=== PATIENT | male | born 1935 | race Caucasian/White ===

== ENCOUNTER 2021-12-22 09:02 | Inpatient (IN) | payer OTHER ==
[~2021-12-22] VITALS: Ht 165.1 cm; Wt 72.8 kg
[~2021-12-22 09:02] MED LIST: ALBU90OI; ALEN70 PO; ASPI81CH PO; BUDE6HFA INH; CARV6.25 PO; CETI10; CLOP75 PO; EZET10; FURO40 PO; Hytrin2 MG PO; METF500 PO; METO25ER; POTA10T PO; SIMV40 PO; TIOT18 INH
[2021-12-22 09:26] LABS: BASOPHILS ABSOLUTE AUTO 0.04 K/mm3 (0.00-0.23); BASOPHILS PERCENT AUTO 0 % (0-2); EOSINOPHILS ABSOLUTE AUTO 0.02 K/mm3 (0.00-0.68); EOSINOPHILS PERCENT AUTO 0 % (0-6); Hematocrit 38.2 % (37.0-53.0); Hemoglobin 12.1 g/dL (13.5-17.5); IMMATURE GRAN ABSOLUTE AUTO 0.08 K/mm3 (0.00-0.10); IMMATURE GRAN PERCENT AUTO 1 % (0-1); LYMPHOCYTES ABSOLUTE AUTO 1.45 K/mm3 (0.84-5.20); LYMPHOCYTES PERCENT AUTO 12 % (21-46); MONOCYTES ABSOLUTE AUTO 0.85 K/mm3 (0.16-1.47); MONOCYTES PERCENT AUTO 7 % (4-13); Mean Corpuscular HGB Conc 31.7 g/dL (31.5-36.5); Mean Corpuscular Volume 95 fL (80-100); Mean Platelet Volume 12.2 fL (9.1-12.4); NEUTROPHILS ABSOLUTE AUTO 9.88 K/mm3 (1.96-9.15); NEUTROPHILS PERCENT AUTO 80 % (41-73); Platelet Count 139 K/mm3 (150-400); RDW Coefficient Variation 14.5 % (11.7-14.2); RDW Standard Deviation 50.2 fL (35.1-46.3); Red Blood Cell Count 4.03 M/mm3 (4.30-5.90); White Blood Cell Count 12.32 K/mm3 (4.00-11.30)
[2021-12-22 09:37] LABS: Albumin, Blood 3.6 g/dL (3.4-5.0); Albumin/Globulin Ratio 1.2 (0.8-1.8); Bilirubin, Total 1.4 mg/dL (0.1-1.0); Bun/Creatinine Ratio 27.3 (12.0-20.0); Calcium, Blood 10.2 mg/dL (8.5-10.1); Creatinine, Blood 1.21 mg/dL (0.60-1.20); Potassium, Blood 4.9 mmol/L (3.5-5.5); Total Protein, Blood 6.6 g/dL (6.4-8.2)
[2021-12-22 10:53] LABS: Influenza A, PCR NEGATIVE (NEGATIVE); Influenza B, PCR NEGATIVE (NEGATIVE); Resp Syncytial Virus, PCR NEGATIVE (NEGATIVE); SARS-Cov-2 (COVID-19) PCR, MMC NEGATIVE (NEGATIVE)
[2021-12-22 12:15] LABS: Base Excess Venous 6.7 mmol/L; Bicarbonate Venous 29.1 mmol/L (24.0-30.0); PCO2 Venous 59.2 mmHg (38-42); pH Blood Venous 7.35 (7.34-7.37)
[2021-12-22] MEDS ORDERED: B-12500 MC2 PO (16:57)
[2021-12-22] MEDS ORDERED: CETI5 PO (16:58)
[2021-12-22] MEDS ORDERED: CALCIUM 500 MG1 EAC2 PO (17:02)
[2021-12-22] MEDS ORDERED: MOME220I INH (17:06)
[2021-12-22] MEDS ORDERED: JARDIANCE25 MG PO (17:07)
[2021-12-22] MEDS ORDERED: Prinivil10 MG PO (17:08)
--- NOTE | 2021-12-22 17:29 | NUR ---
PT ADMITTED TO ICU 5 AT 1544. PT ALERT AND ORIENTED UPON ARRIVAL, ON 2L/NC. PT REQUESTED OXYGEN BE TURNED UP TO 3L HE FELT A LITTLE SHORT OF BREATH. SPO2 98% ON 3L/NC. SR/ST IN THE LOW 100S WITH PVC, SBP IN THE 90S TO LOW 100S WITH MAPS ABOVE 70. ASSISTED PT IN CLEANING HIS DENTURES AND HIS MOUTH HE HAD LARGE AMOUNTS OF CATES BROWN SPUTUM/DRIED SKIN STUCK IN HIS MOUTH. PT STATES HE HAS BEEN HOLDING IT IN HIS MOUTH ALL DAY. DENTURES BACK IN PT'S MOUTH AFTER CLEANING. ADMIT PAPERWORK COMPLETED WITH PT AND USING HIS RECORDS. PT'S TO BRING IN HIS HOME MEDS TO COMPLETE MED REC. PARTIALLY COMPLETED FROM PHARMACY LIST. PT'S ALSO BRINGING IN PT'S CPAP. UPDATED PT'S WHEN SHE WAS HERE AND PT'S SON ASHLEIGH OVER THE PHONE ABOUT PLAN OF CARE. PT EATING DINNER CURRENTLY, NO REQUESTS AT THIS TIME. CONTINUING TO MONITOR.
--- NOTE | 2021-12-22 19:41 | NUR ---
ASSUMED CARE. AOX3, COOPERATIVE. [place]. ABLE TO MAKE NEEDS KNOWN. NEURO INTACT. LS-WITH LITTLE AIR EXCHANGE IN THE RIGHT BASE. COARSE IN UPPER LOBES AND ON THE LEFT. COUGH WEAK-STATES HE IS WAS ABLE TO COUGH UP SECRETIONS EARLIER. SPUTUM CUP GIVEN. ON 3L WITH SATS >90%. RT IN ROOM TO SET UP CPAP. BREATHING TX PROVIDED. PATIENT VERY COMPLIANT WITH CPAP AND DOES NOT MIND WEARING IT. SINUS ON THE MONITOR, WITH OCCATIONAL PVC'S RATE 92. BP SOFT WITH MAP >65. +2 PITTING EDEMA BLE. URINAL AT BEDSIDE. CALL LIGHT IN REACH. WILL MONITOR.
--- NOTE | 2021-12-22 20:27 | NUR ---
ONCE PT FELL ASLEEP WITH CPAP ON, SATS DROPPED TO 86%, TURNED BLEED UP TO 5L HE CONTINUED TO DROP DUE TO MOUTH BREATHING, AND HE HAS NOSTRIL CPAP. RT CALLED FOR MASK.
--- NOTE | 2021-12-23 01:06 | NUR ---
BLADDER SCAN COMPLETED WITH ONLY 148 IN THE BLADDER. STATES HE DOES NOT FEEL HE NEEDS TO USE THE URINAL. STATES HE NORMALLY TAKES A PILL TO HELP HIM URINATE EVERY 15 MINUTES. CONTINUES TO THROW PVC'S PER MONITOR. BP SOFT WITH MAP >65 WHILE HE IS ASLEEP. MAG AND POTASSIUM LABS ORDERED FOR AM, WILL DRAW LABS EARLY.
[2021-12-23 04:43] LABS: BASOPHILS ABSOLUTE AUTO 0.01 K/mm3 (0.00-0.23); BASOPHILS PERCENT AUTO 0 % (0-2); EOSINOPHILS PERCENT AUTO 0 % (0-6); Hematocrit 33.4 % (37.0-53.0); Hemoglobin 10.5 g/dL (13.5-17.5); IMMATURE GRAN ABSOLUTE AUTO 0.05 K/mm3 (0.00-0.10); IMMATURE GRAN PERCENT AUTO 1 % (0-1); LYMPHOCYTES ABSOLUTE AUTO 0.49 K/mm3 (0.84-5.20); LYMPHOCYTES PERCENT AUTO 6 % (21-46); MONOCYTES ABSOLUTE AUTO 0.35 K/mm3 (0.16-1.47); MONOCYTES PERCENT AUTO 4 % (4-13); Mean Corpuscular HGB 29.7 pg (26.0-34.0); Mean Corpuscular HGB Conc 31.4 g/dL (31.5-36.5); Mean Corpuscular Volume 95 fL (80-100); Mean Platelet Volume 12.5 fL (9.1-12.4); NEUTROPHILS PERCENT AUTO 90 % (41-73); Platelet Count 115 K/mm3 (150-400); RDW Coefficient Variation 14.6 % (11.7-14.2); RDW Standard Deviation 50.2 fL (35.1-46.3); Red Blood Cell Count 3.53 M/mm3 (4.30-5.90)
[2021-12-23 05:02] LABS: Magnesium, Blood 2.1 mg/dL (1.6-2.4)
[2021-12-23 05:03] LABS: Albumin, Blood 2.9 g/dL (3.4-5.0); Albumin/Globulin Ratio 0.9 (0.8-1.8); Bilirubin, Total 0.6 mg/dL (0.1-1.0); Calcium, Blood 9.1 mg/dL (8.5-10.1); Creatinine, Blood 1.74 mg/dL (0.60-1.20); Globulin, Blood 3.1 g/dL (2.2-4.0)
--- NOTE | 2021-12-23 06:38 | NUR ---
SHIFT SUMMARY: AOX3, [place], BUT ABLE TO MAKE NEEDS KNOWN. LS COARSE WITH VERY DIMINISHED BASES MOSTLY ON THE RIGHT. VERY THICK DARK BROWN SPUTUM COLLECTED AND SENT TO LAB. WAS PLACED ON CPAP WITH MASK TO KEEP SATS >90% WITH 4L BLEED IN WHILE SLEEPING, WHEN AWAKE 3-4L NC. SINUS WITH SEVERAL PVC'S T/O NIGHT, DID HAVE SOME VENT BIGIMINY RUNS. MAG AND POTASSIUM NORMAL THIS AM. SOFT BP IN THE 90'S BUT MAP REMAINED >65. NO BM, APPETITE FAIR. OLIGURIA WITH NO URINE OUTPUT THIS SHIFT, BLADDER SCAN ONLY SHOWED 148. CREATINE THIS AM 1.74 AND BUN 47. EDEMA TO BLE 2+. DR. MONGE NOTIFIED AND STATED HE WILL TAKE LOOK AT CHART BNP WAS ELEVATED. DENIED ANY COMPLAINTS ENTIRE SHIFT, SLEPT WELL T/O NIGHT. WILL REPORT TO DAYSHIFT. CALL LIGHT IN REACH.
[2021-12-23] MEDS ORDERED: VITAMIN D325 MC3 PO (07:39)
--- NOTE | 2021-12-23 15:29 | NUR ---
PT UP TO THE BSC WITH MINIMAL ASSIST TO MANAGE CORDS AND OXYGEN LINE. HE WAS ABLE TO VOID AND STOOL. TAKING IN HIS MEALS FAIRLY WELL, HE DOESN'T APPROVE OF SOME OF THE FOOD.
--- NOTE | 2021-12-23 18:28 | NUR ---
JC HAS BEEN ON OXYGEN VIA NC @ 2L WITH SATS >96%. HE WILL GET SOME SHORTNESS OF BREATH AND WILL REQUEST A BREATHING TREATMENT. HE HAD AN ECHO DONE TODAY WHICH SHOWED SOME WORSENING OF HIS HEART CONDITION. SPOKE TO THE PATIENT ABOUT HIS CONDITION, HE SAID HE COULD TELL THAT. HE HAS TRIED TO EAT SOME OF HIS MEALS, IT IS MORE OF A TASTE THAN A LACK OF DESIRE. HE CONTINUES TO COUGH UP BROWN TINTED RETURN. IN TODAY. NO OTHER CHANGES.
--- NOTE | 2021-12-23 19:20 | NUR ---
ASSUMED CARE. AOX3, STATES HE FEELS BETTER TODAY. LS DIMINISHED T/O. CONTINUES TO HAVE VERY THICK DARK BROWNISH RED SPUTUM, LARGE AMOUNTS. CONTINUES ON 3L NC WITH SATS 95%. SINUS ON MONITOR WITH RATE 77. DENIES ANY CHEST PAIN. BLOOD PRESSURES WNL. EDEMA DECREASED TO 1+ in BLE UP TO KNEES. REPORTS BM TODAY, POOR APPETITE. DENIES ANY NEEDS. URINAL AT BEDSIDE. WILL CONTINUE TO MONITOR,.
--- NOTE | 2021-12-23 21:19 | NUR ---
SPOKE WITH SON ASHLEIGH IN REGARDS TO UPDATES. DID ENCOURGE HIM TO TALK TO THE DOCTOR IN REGARDS TO RONALDS OUTCOME. SON HAS CONCERNS ABOUT HIS FATHERS CARDIAC CHANGES AND WHAT THAT MEANS FOR HIS FUTURE. HE STATES HE WILL TRY AND MAKE A TRIP DOWN TO SEE HIS FATHER TOMORROW AND TALK WITH MD.
[2021-12-24 04:08] LABS: Hematocrit 33.7 % (37.0-53.0); Hemoglobin 10.9 g/dL (13.5-17.5); Mean Corpuscular HGB Conc 32.3 g/dL (31.5-36.5); Mean Corpuscular Volume 93 fL (80-100); Mean Platelet Volume 12.3 fL (9.1-12.4); Platelet Count 133 K/mm3 (150-400); RDW Coefficient Variation 15.1 % (11.7-14.2); RDW Standard Deviation 51.6 fL (35.1-46.3); Red Blood Cell Count 3.63 M/mm3 (4.30-5.90); White Blood Cell Count 10.68 K/mm3 (4.00-11.30)
[2021-12-24 04:26] LABS: Anion Gap 7 mmol/L (6-16); Blood Urea Nitrogen 61 mg/dL (8-24); Bun/Creatinine Ratio 36.3 (12.0-20.0); CO2, Blood 33 mmol/L (21-32); Calcium, Blood 9.1 mg/dL (8.5-10.1); Chloride, Blood 97 mmol/L (98-108); Creatinine, Blood 1.68 mg/dL (0.60-1.20); Glomerular Filtration Rate 39 (60-); Glucose, Blood 138 mg/dL (70-99); Phosphorus, Blood 3.2 mg/dL (2.5-4.9); Potassium, Blood 4.5 mmol/L (3.5-5.5); Sodium, Blood 137 mmol/L (136-145)
--- NOTE | 2021-12-24 04:42 | NUR ---
PT CONVERTED INTO AFIB WITH RATE 140-160'S. WENT TO ROOM TO FIND HIM AWAKE AND USING URINAL. DENIED ANY CHEST PAIN, FLUTTER IN CHEST OR OTHER SYMPTOMS. CALLED DR. MONGE AND ORDER FOR LOPRESSOR ORDERED.
--- NOTE | 2021-12-24 06:37 | NUR ---
SHIFT SUMMARY: PT SLEPT WELL T/O NIGHT WITH CPAP OF 4LITERS BLEED. SATS STAYED ABOVE 95%. SINUS TILL THIS MORNING WHEN HE CONVERTED TO AFIB WITH RVR AROUND 4 AM. TOTAL 10MG OF IV LOPRESSOR GIVEN. RATE DECREASED FROM 150-160'S DOWN TO 110-120'S, CONTINUES TO HAVE PVC'S. C/O CHEST DISCOMFORT TO THE LEFT SIDE. EKG COMPLETED TO SHOW AFIB WITH RVR WITH PREMATURE VENTRICULAR OR ABERRANTLY CONDUCTED COMPLEXES. BNP ADDED TO MORNING LABS, STILL PENDING. FLUID OUTPUT ONLY 200CC THIS SHIFT. BLOOD PRESSURES CONTINUE TO BE SOFT WITH MAP 65-70'S. EDEMA STILL PRESENT IN BLE. CONTINUES TO HAVE BROWN THICK SPUTUM. WILL REPORT TO DAYSPAFT. CALL LIGHT IN REACH.
--- NOTE | 2021-12-24 07:30 | NUR ---
PT A&O X 4. REPORTS FEELING MORE SOB AND "CHEST TIGHTNESS" THIS AM. ECG SHOWS AFIB WITH RATE 120-140'S. SBP 90'S AND MAP TRENDING 70- 80'S. LUNGS VERY DIMINISHED WITH MINIMAL AIR EXCHANGE AUSCULTATED.SATS>90% ON 4 LITERS NASAL CANULA. RR 22-28. COUGH PRODUCTIVE OF MODERATE AMOUNT OF THICK, BROWN SPUTUM. PT REPORTS POOR APPETITE, BUT DENIES NAUSEA. PT VOIDED 50 CC OF DARK, YELLOW URINE. URINE OUTPUT POOR OVER NIGHT. BNP ADDED TO AM LABS AND STILL PENDING. PT SKIN IS FRAIL, BUT OVERALL C/D/I. PLAN TO CONTACT DR. MENDIETA SOON BNP RESULTS AVAILABLE TO DISCUSS ANTI-ARRHYTHMIC MEDICATIONS AND DIURETICS.
--- NOTE | 2021-12-24 08:45 | NUR ---
HR 140'S AFIB. PT VERY DYNSPNEIC AND TACHYPNEIC. ATTEMPTED TO HAVE PT WEAR HIS CPAP, BUT HE DID NOT TOLERATE THE CPAP MASK. DR. MENDIETA UPDATED REGARDING INCREASED HR AND DYSPNEA. DISCUSSED ANTIARRYTHMIC, I&O, AND DIURETICS. NO ORDERS GIVEN AT THAT TIME.
--- NOTE | 2021-12-24 09:00 | NUR ---
HR DROPPED TO 70'S-AFIB. PRIMARY RN TO ROOM-HR 40'S AND PT UNREPONSIVE. RESPIRATIONS AGONAL. CODE BLUE CALLED-SEE CODE BLUE SHEET.
--- NOTE | 2021-12-24 09:07 | NUR ---
PT SPOUSE VERONIQUE CONTACTED BY NURSING CNA PCT-ANGELIQUE. PT WAS MADE FULL DNR. CPR STOPPED. DR. MONTENEGRO AND ANAM AT BEDSIDE. PT MADE COMFORT CARE HE HAD FAINT PULSES. MED WITH MORPHINE IV-SEE EMAR.
--- NOTE | 2021-12-24 09:12 | NUR ---
PT . FINAL DISCHARGE COMPLETED BY FE HAYNES.
== END 2021-12-24 09:12 | DRG 871 ==
LOC: ER 09:02 → ICUW 11:44 → ICUE 11:44
PROVIDERS: Emergency Medicine; Nurse Practitioner Acute Care; ADMIT Internal Medicine
PROC: 5A09357 Assistance with Respiratory Ventilation, Less than 24 Consecutive Hours, Continuous Positive Airway Pressure (ICD-10-PCS; principal; 2021-12-22)
PROC: 3E03329 Introduction of Other Anti-infective into Peripheral Vein, Percutaneous Approach (ICD-10-PCS; 2021-12-22)
PROC: 5A12012 Performance of Cardiac Output, Single, Manual (ICD-10-PCS; 2021-12-22)
PROC: 3E033XZ Introduction of Vasopressor into Peripheral Vein, Percutaneous Approach (ICD-10-PCS; 2021-12-22)
DX: A41.9 Sepsis, unspecified organism (principal); I21.A1 Myocardial infarction type 2; I50.23 Acute on chronic systolic (congestive) heart failure; R65.21 Severe sepsis with septic shock; J18.9 Pneumonia, unspecified organism; J96.21 Acute and chronic respiratory failure with hypoxia; N17.9 Acute kidney failure, unspecified; J44.0 Chronic obstructive pulmonary disease with (acute) lower respiratory infection; I46.9 Cardiac arrest, cause unspecified; Z20.822 Contact with and (suspected) exposure to COVID-19; G47.33 Obstructive sleep apnea (adult) (pediatric); I48.91 Unspecified atrial fibrillation; I08.1 Rheumatic disorders of both mitral and tricuspid valves; I27.20 Pulmonary hypertension, unspecified; I11.0 Hypertensive heart disease with heart failure; E78.00 Pure hypercholesterolemia, unspecified; I25.10 Atherosclerotic heart disease of native coronary artery without angina pectoris; E11.51 Type 2 diabetes mellitus with diabetic peripheral angiopathy without gangrene; R77.8 Other specified abnormalities of plasma proteins; R79.89 Other specified abnormal findings of blood chemistry; N40.0 Benign prostatic hyperplasia without lower urinary tract symptoms; D69.6 Thrombocytopenia, unspecified; Z99.81 Dependence on supplemental oxygen; Z79.899 Other long term (current) drug therapy; Z79.84 Long term (current) use of oral hypoglycemic drugs; Z79.01 Long term (current) use of anticoagulants; Z79.82 Long term (current) use of aspirin; Z79.51 Long term (current) use of inhaled steroids; Z87.891 Personal history of nicotine dependence; Z79.02 Long term (current) use of antithrombotics/antiplatelets; Z95.2 Presence of prosthetic heart valve
CPT/HCPCS: 0241U; 36415; 71045; 80053; 80069; 82803; 82947; 83605; 83735; 83880; 84145; 84484; 85025; 85027; 87040; 87070; 87205; 87449; 92950; 93005; 93010; 93306; 94640; 94644; 94664; 94762; 96365; 96366; 96375; 99285-25; A9270; J0456; J0461; J0696; J1265; J1644; J1940; J2270; J7030; J7050; J7060